=== PATIENT | female | born 1990 | race Caucasian/White ===

== ENCOUNTER 2016-07-27 09:05 | Outpatient (CLI) | payer BC | END 2016-07-27 09:06 | disposition home or self-care (01) | DX: Z00.00 Encounter for general adult medical examination without abnormal findings (principal) ==

== ENCOUNTER 2016-09-02 15:49 | Emergency (ER) | payer OTHER, BC | END 2016-09-02 16:26 | disposition home or self-care (01) | DX: T23.151A Burn of first degree of right palm, initial encounter (principal); T31.0 Burns involving less than 10% of body surface; X15.0XXA Contact with hot stove (kitchen), initial encounter; Y92.129 Unspecified place in nursing home as the place of occurrence of the external cause; Y99.0 Civilian activity done for income or pay | CPT/HCPCS: 1040M; 99282; 99283 ==

== ENCOUNTER 2023-04-17 16:06 | Emergency (ER) | payer BC, MEDICAID ==
[2023-04-17 16:20] VITALS: O2SAT 99
[2023-04-17 16:34] LABS: RAPID STREP SCREEN Negative (Negative)
[2023-04-17 17:12] LABS: CORONAVIRUS 229E-RESP PCR NOT DETECTED; CORONAVIRUS HKU1-RESP PCR NOT DETECTED; CORONAVIRUS NL63-RESP PCR NOT DETECTED; CORONAVIRUS OC43-RESP PCR NOT DETECTED; HUMAN METAPNEUMOVIRUS NOT DETECTED; RHINOVIRUS/ENTEROVIRUS NOT DETECTED; SARS-CoV-2 -RESP PCR PANEL NOT DETECTED
[2023-04-17 17:13] LABS: B. PARAPERTUSSIS- RESP PCR PAN NOT DETECTED; B. PERTUSSIS- RESP PCR PANEL NOT DETECTED; C. PNEUMONIAE- RESP PCR PANEL NOT DETECTED; INFLUENZA A- RESP PCR PANEL NOT DETECTED; INFLUENZA B - RESP PCR PANEL NOT DETECTED; M. PNEUMONIAE- RESP PCR PANEL NOT DETECTED; PARAINFLUENZA VIRUS 1 NOT DETECTED; PARAINFLUENZA VIRUS 2 NOT DETECTED; PARAINFLUENZA VIRUS 3 NOT DETECTED; PARAINFLUENZA VIRUS 4 NOT DETECTED; RSV- RESP PCR PANEL NOT DETECTED
[2023-04-17] MEDS ORDERED: CHERRY SYRUP 10 ML UDC PO ONE (17:29)
[2023-04-17] MEDS ORDERED: DEXAMETHASONE 10 MG/ML VIAL PO STA (17:29)
--- NOTE | 2023-04-17 17:31 | ED Physician Documentation ---
History of Present Illness - Stated complaint Stated Complaint: FEVER,SORE THROAT - Chief complaint Chief Complaint: Heent - Additonal information Additional information: Patient 33-year-old female presenting with sore throat, cough, congestion. Reports she believes that she has strep throat. No known sick contacts. Positive fevers. No nausea, vomiting, rash, abdominal pain, dysuria. Review of Systems Constitutional: reports: Fever Nose: reports: Rhinorrhea / runny nose, Congestion Throat: reports: Sore throat Cardiac: denies: Chest pain / pressure Respiratory: reports: Cough GI: denies: Abdominal Pain : denies: Dysuria PD PAST MEDICAL HISTORY - Past Medical History Psych: Anxiety - Past Surgical History Past Surgical History: No - Present Medications Home Medications: Ambulatory Orders Medication Instructions Recorded Confirmed Benzonatate [Tessalon] 200 mg PO TID PRN #30 cap 04/17/23 - Allergies Allergies/Adverse Reactions: Allergies Allergy/AdvReac Type Severity Reaction Status Date / Time No Known Drug Allergies Allergy Verified 09/02/16 16:01 - Social History Does the pt smoke?: No Smoking Status: Never smoker Does the pt drink ETOH?: No Does the pt have substance abuse?: No PD ED PE NORMAL - Vitals Vital signs reviewed: Yes - General General: Alert and oriented X 3, No acute distress - HEENT HEENT: Atraumatic, PERRL, EOMI, Ears normal, Moist mucous membranes, Other (Mild erythema and postnasal drip in the posterior oropharynx.) - Neck Neck: Supple, no meningeal sign - Cardiac Cardiac: RRR - Respiratory Respiratory: No respiratory distress - Abdomen Abdomen: Normal bowel sounds - Female Female : Deferred - Rectal Rectal: Deferred - Back Back: No CVA TTP Results - Vitals Vitals: Vital Signs - 24 hr 04/17/23 16:13 Temperature 36.7 C Heart Rate 93 Respiratory 18 Rate Blood Pressure 107/62 O2 Saturation 99 Oxygen O2 Source Room air - Labs Labs: Laboratory Tests 04/17/23 04/17/23 16:20 16:20 Nasal Adenovirus (PCR) NOT DETECTED Nasal B. parapertussis DNA (PCR) NOT DETECTED Nasal Coronavir 229E PCR NOT DETECTED Nasal Coronavir HKU1 PCR NOT DETECTED Nasal Coronavir NL63 PCR NOT DETECTED Nasal Coronavir OC43 PCR NOT DETECTED Nasal Enterovir/Rhinovir PCR NOT DETECTED Nasal Influenza B PCR NOT DETECTED Nasal Influenza A PCR NOT DETECTED Nasal Parainfluen 1 PCR NOT DETECTED Nasal Parainfluen 2 PCR NOT DETECTED Nasal Parainfluen 3 PCR NOT DETECTED Nasal Parainfluen 4 PCR NOT DETECTED Nasal RSV (PCR) NOT DETECTED Nasal B.pertussis DNA PCR NOT DETECTED Nasal C.pneumoniae (PCR) NOT DETECTED Hernán Human Metapneumo PCR NOT DETECTED Nasal M.pneumoniae (PCR) NOT DETECTED Nasal SARS-CoV-2 (PCR) NOT DETECTED Group A Strep Rapid Negative PD Medical Decision Making - ED course Complexity details: reviewed results, d/w patient ED course: Patient 33-year-old female presenting with cough, congestion, fever, sore throat. Afebrile, hematin stable on arrival to the emergency department. Some mild erythema and postnasal drip noted in the posterior oropharynx but no exudates, uvular deviation, sublingual elevation or other indications of D6 neck infection. She is otherwise respirating easily on room air with clear aeration in all lung miller. Respiratory panel negative. Strep swab negative. Strep culture pending. Given dose Decadron for symptomatic management. Discharged with medication for symptomatic management. Encourage careful follow-up with primary pediatrics. Clear return precautions given. Departure - Departure Disposition: 01 Home, Self Care Clinical Impression: Viral illness Instructions: ED Viral Syndrome Prescriptions: Benzonatate [Tessalon] 200 mg PO TID PRN #30 cap PRN Reason: Cough Comments: Thank you for allowing us to care for you today [facility]. Your strep swab as well as your screening test for COVID and influenza were negative. Your strep test will be sent for culture and further testing and if it is positive we will contact you directly in the next few days. I have written a prescription for some medication to help with your cough. [id number] medication such as ibuprofen, acetaminophen, Mucinex can all be very helpful in managing your symptoms. Please drink plenty fluids and get plenty of rest. Please follow-up with your primary care doctor soon as possible. If it anytime you develop any new or worsening symptoms please not hesitate to return to the emergency department.
[2023-04-17 17:56] VITALS: BP 110/60
== END 2023-04-17 17:48 | disposition home or self-care (01) ==
LOC: ED 16:06
DX: B34.9 Viral infection, unspecified (principal)
CPT/HCPCS: 87070; 87430; 87633; 99283; A9270